=== PATIENT | female | born 1975 | race Hispanic/Latino ===

== ENCOUNTER 2016-09-18 07:38 | Outpatient (CLI) | payer BC ==
[2016-09-18 08:44] LABS: ALT (SGPT) 15 U/L (0-55); AST (SGOT) 15 U/L (5-34); Alkaline Phosphatase 84 U/L (40-150); Anion Gap 13 mmol/L (10-20); BUN (Urea Nitrogen) 10 mg/dL (7.0-18.7); Bilirubin, Total 0.4 mg/dL (0.2-1.2); Calc. Creatinine Clearance 0 mL/min (70-130); Calcium 8.8 mg/dL (7.8-10.44); Carbon Dioxide 20 mmol/L (22-29); Chloride 109 mmol/L (98-107); Estimated GFR-MDRD 79; LDL Cholesterol, Calculated 112 mg/dL; Protein, Total 7.3 g/dL (6.0-8.3)
[2016-09-18 13:55] LABS: Hematocrit 36.7 % (36.0-47.0); Mean Platelet Volume 8.2 fL (7.4-10.4); Neutrophil 50 % (42-75); Red Blood Cell (RBC) Count 4.53 mill/uL (4.20-5.40); White Blood Cell (WBC) Count 7.5 thou/uL (4.8-10.8)
== END 2016-09-18 07:39 ==
LOC: NAV LAB 07:38
PROVIDERS: ATTEND Family Medicine
DX: Z00.00 Encounter for general adult medical examination without abnormal findings (principal)
CPT/HCPCS: 80053; 80061; 82306; 84439; 84443; 85007; 85027

== ENCOUNTER 2016-09-18 07:46 | Outpatient (CLI) | payer BC ==
--- NOTE | 2016-09-18 10:17 | RAD ---
PA AND LATERAL CHEST INDICATIONS: Exposure to TB. FINDINGS: No suspicious pulmonary lesion or pleural effusion is evident. The cardiomediastinal silhouette is within normal limits. No acute osseous abnormality is evident. IMPRESSION: No acute abnormality. POS: [facility]
== END 2016-09-18 07:47 | disposition home or self-care (01) ==
LOC: NAV RAD 07:46
PROVIDERS: ATTEND Family Medicine
DX: Z20.1 Contact with and (suspected) exposure to tuberculosis (principal)
CPT/HCPCS: 71020

== ENCOUNTER 2016-09-24 07:50 | Outpatient (CLI) | payer BC ==
[2016-09-24 12:52] LABS: Iron 67 ug/dL (50-170)
== END 2016-09-24 07:51 | disposition home or self-care (01) ==
LOC: NAV LAB 07:50
PROVIDERS: ATTEND Family Medicine
DX: N91.2 Amenorrhea, unspecified (principal)
CPT/HCPCS: 36415; 82728; 83540; 83550